=== PATIENT | female | born 1955 | race Caucasian/White ===

== ENCOUNTER 2016-11-05 07:04 | Day surgery (SDC) | payer MEDICARE, BC ==
--- NOTE | ~2016-11-05 | EGD ---
EGD REPORT [facility] [address] [place]. [address] NAME: CHIQUITA ALEGRE : 55 STATUS : REG [facility] PAT#: [id number] AGE: 61 ADM/REG DATE : 11/05/16 MR#: [id number] REPORT SERV DATE: 11/05/16 DICTATED BY: OLGA BENTLEY DATE: 11/05/16 REPORT STATUS : Draft TRANSCRIBED BY: [facility] DATE: 11/05/16 Endoscopy Center Patient Name: Chiquita Alegre Date of : 1955 Attending MD: OLGA BENTLEY MD Procedure Date No Time: 11/05/2016 Procedure: Upper GI endoscopy Indications: Dysphagia, Gastroparesis; Omeprazole prn. Patient Profile: Informed consent was obtained from the patient by me prior to the procedure. Risks, benefits, and alternatives were discussed including the risk of bleeding, perforation, infection, reaction to medicine, missed lesion, and cardiopulmonary complications. Referring MD: JENNIFER MCDONNELL Medicines: Monitored Anesthesia Care Complications: No immediate complications. Procedure: Pre-Anesthesia Assessment: - ASA Grade Assessment: III - A patient with severe systemic disease. After obtaining informed consent, the endoscope was passed under direct vision. Throughout the procedure, the patient's blood pressure, pulse, and oxygen saturations were monitored continuously. The GIF H190 [id number] was introduced through the mouth, and advanced to the third part of duodenum. The endoscope was withdrawn with careful examination all mucosal surfaces including retroflexion stomach. The upper GI endoscopy was accomplished without difficulty. The patient tolerated the procedure well. Findings: Patchy mildly erythematous mucosa was found in the third part of the duodenum. Patchy mildly erythematous mucosa was found in the second part of the duodenum. Biopsies were taken with a cold forceps for histology. A few localized erosions were found in the first part of the duodenum at c-sweep. Patchy mildly erythematous mucosa was found in the gastric body and in the gastric antrum. Biopsies were taken with a cold forceps for histology. The cardia and gastric fundus were normal. A single 5 mm sessile polyp was found in the gastric body. The polyp was removed with a cold biopsy forceps. Resection and retrieval were complete. The examined esophagus was normal except as below. 48F Savary dilation EGD REPORT [address] [address] NAME: CHIQUITA ALEGRE : 55 STATUS : REG [facility]#: [id number] AGE: 61 ADM/REG DATE : 11/05/16 MR#: [id number] REPORT SERV DATE: 11/05/16 DICTATED BY: OLGA BENTLEY DATE: 11/05/16 REPORT STATUS : Draft TRANSCRIBED BY: [employer] DATE: 11/05/16 performed over guidewire held in antrum; minimal resistance to dilation; endoscopic visualization afterwards no mucosal breaks. Multiple small plaques were found in the upper third of the esophagus, very mild. Biopsies were taken with a cold forceps for histology and sent for fungal stain. The esophagus and gastroesophageal junction were examined with white light. There was no visual evidence of Benson's esophagus. The pylorus was normal. Area was successfully injected with 100 units botulinum toxin submucosal 4 quadrants 25U each. Impression: - Erythematous duodenopathy. - Erythematous duodenopathy. Biopsied. - Duodenal erosions. - Erythematous mucosa in the gastric body and antrum. Biopsied. - Normal cardia and gastric fundus. - A single gastric polyp. Resected and retrieved. - Normal esophagus. Dilated. - Multiple plaques in the upper third of the esophagus. Biopsied. - There is no endoscopic evidence of Benson's esophagus. - Normal pylorus. Injected with botulinum toxin. Recommendation: - Patient has a contact number available for emergencies. The signs and symptoms of potential delayed complications were discussed with the patient. Return to normal activities tomorrow. Written discharge instructions were provided to the patient. - Regular diet. - Continue present medications. - Await pathology results. - Restart Dexilant. - Avoid NSAID's. Procedure Code(s): --- Professional --- 55951, Esophagogastroduodenoscopy, flexible, transoral; with insertion of guide wire followed by passage of dilator(s) through esophagus over guide wire 07801, 59, Esophagogastroduodenoscopy, flexible, transoral; with directed submucosal injection(s), any substance 48341, Esophagogastroduodenoscopy, flexible, transoral; with biopsy, single or multiple Diagnosis Code(s): --- Professional --- K31.89, Other diseases of stomach and duodenum K26.9, Duodenal ulcer, unspecified as acute or chronic, EGD REPORT [address] [address] NAME: CHIQUITA ALEGRE : 55 STATUS : REG [facility] PAT#: [id number] AGE: 61 ADM/REG DATE : 11/05/16 MR#: [id number] REPORT SERV DATE: 11/05/16 DICTATED BY: OLGA BENTLEY DATE: 11/05/16 REPORT STATUS : Draft TRANSCRIBED BY: [employer] DATE: 11/05/16 without hemorrhage or perforation K31.9, Disease of stomach and duodenum, unspecified K31.7, Polyp of stomach and duodenum K22.8, Other specified diseases of esophagus R13.10, Dysphagia, unspecified K31.84, Gastroparesis CPT copyright 2013 [employer]. All rights reserved. The codes documented in this report are preliminary and upon butcher head review may be revised to meet current compliance requirements. OLGA BENTLEY MD 11/05/2016 9:19 AM This report has been signed electronically. Number of Addenda: 0 Note Initiated On: 11/05/2016 8:20 AM Scope Withdrawal Time 0 hours 0 minutes 0 seconds [id number] [id number]
--- NOTE | ~2016-11-05 | EGD ---
EGD REPORT [facility] [address] [place]. [address] NAME: CHIQUITA ALEGRE : 55 STATUS : REG [facility] PAT#: [id number] AGE: 61 ADM/REG DATE : 11/05/16 MR#: [id number] REPORT SERV DATE: 11/05/16 DICTATED BY: OLGA BENTLEY. DATE: 11/05/16 REPORT STATUS : Draft TRANSCRIBED BY: [facility] DATE: 11/05/16 Endoscopy Center Patient Name: Chiquita Alegre Date of : 1955 Attending MD: OLGA BENTLEY MD Procedure Date No Time: 11/05/2016 Procedure: Colonoscopy Indications: High risk colon cancer surveillance: Personal history adenoma >= 10 mm in size; last exam 2012. Patient Profile: Informed consent was obtained from the patient by me prior to the procedure. Risks, benefits, and alternatives were discussed including the risk of bleeding, perforation, infection, reaction to medicine, missed lesion, and cardiopulmonary complications. Referring MD: JENNIFER MCDONNELL Medicines: Monitored Anesthesia Care Complications: No immediate complications. Procedure: Pre-Anesthesia Assessment: - ASA Grade Assessment: III - A patient with severe systemic disease. After I obtained informed consent, the scope was passed under direct vision. Throughout the procedure, the patient's blood pressure, pulse, and oxygen saturations were monitored continuously. The PCF [id number] was introduced through the anus and advanced to the cecum, identified by appendiceal orifice and ileocecal valve. The colonoscope was slowly withdrawn with careful examination all mucosal surfaces including specific attention around flexures and tip deflection behind folds; retroflexion performed in rectum. The colonoscopy was performed without difficulty. The patient tolerated the procedure well. The quality of the bowel preparation was adequate. The ileocecal valve, appendiceal orifice and rectum were photographed. Findings: Two sessile polyps were found in the transverse colon. The polyps were 7 mm in size. These polyps were removed with a cold snare. Resection and retrieval were complete. The transverse colon (evidence of a previous tattoo) and area at 55 cm proximal to the anus appeared normal. Impression: - Two 7 mm polyps in the transverse colon. Resected and retrieved. - The transverse colon and area at 55 cm proximal to the EGD REPORT [place] [id number] [facility] [place]. [address] NAME: CHIQUITA ALEGRE : 55 STATUS : REG [facility]#: [id number] AGE: 61 ADM/REG DATE : 11/05/16 MR#: [id number] REPORT SERV DATE: 11/05/16 DICTATED BY: OLGA BENTLEY DATE: 11/05/16 REPORT STATUS : Draft TRANSCRIBED BY: [facility] DATE: 11/05/16 anus are normal. Recommendation: - Patient has a contact number available for emergencies. The signs and symptoms of potential delayed complications were discussed with the patient. Return to normal activities tomorrow. Written discharge instructions were provided to the patient. - Regular diet. - Continue present medications. - Await pathology results. - Repeat colonoscopy for surveillance based on pathology results. - Restart coumadin tonight; check INR PCP 3-5 days; d/w patient, done. Procedure Code(s): --- Professional --- 87549, Colonoscopy, flexible, proximal to splenic flexure; with removal of tumor(s), polyp(s), or other lesion(s) by snare technique Diagnosis Code(s): --- Professional --- D12.3, Benign neoplasm of transverse colon Z86.010, Personal history of colonic polyps CPT copyright 2013 [employer]. All rights reserved. The codes documented in this report are preliminary and upon unit tender review may be revised to meet current compliance requirements. OLGA BENTLEY MD 11/05/2016 9:11 AM This report has been signed electronically. Number of Addenda: 0 Note Initiated On: 11/05/2016 8:24 AM Scope Withdrawal Time 0 hours 13 minutes 2 seconds [id number] [place] [id number]
[~2016-11-05 07:04] MED LIST: AMB10 PO; AMITIZA8 MCG PO; AREDIA; AREDIA IV; ARIDIA IV; ARMOUR THYRO15 MG PO; ARMOUR THYRO30 MG PO; C5 PO; COMBIGAN0.2 MG/0.5 OP; COSOPT OPH; COZAAR100 MG PO; DORZOLAMIDE2 % OP; DORZOLAMIDE2 % OPH; ESTROGEN PELLET SC; FLONASE NAS; FLOVENT DISK50 MCG INH; FOLBIC; FOLBIC PO; FOLIC PO; HORMONE PELLET; HORMONE PELLETS; HORMONE PELLETS IL; HORMONE PELLETS SC; JANTOVEN5 MG PO; KAPIDEX60 MG PO; LACRILUBE OPH; LEVOTHROID50 MCG PO; LEVOTHYROXIN50 MCG PO; LEVSINTAB PO; LIDODERM T; LINZESS 290 M290 MCG PO; LORT7 PO; LUMIGAN2.5 ML OPH; MAX D3 PO; NEXIUM40 PO; NORCO1 TA2 PO; NORCO1 TAB PO; NUVIGIL150 MG PO; NUVIGIL250 MG PO; PAMIDRONATE IV/IM/SC; PLAQ200B PO; PREV30 PO; PRIN5 PO; PROAIRRESP INH; RANITIDINE300 MG PO; RESTASIS OPH; RITALIN LA20 MG PO; RITALIN20 PO; SPIRO25 PO; SPIRO50 PO; TIMOLOL GEL0.5 % OPH; VITAMIN D1000 UNI1 PO; VITAMIN D31000 UNIT PO; VYTORIN 10/40 T1 TAB PO; XALAT OPH; XYREM500 MG/ML PO; ZANTAC300 MG PO; ZOCOR40 PO; [UNRECOGNIZED DRUG - OTHER]; [UNRECOGNIZED DRUG - OTHER]; [UNRECOGNIZED DRUG - OTHER]; [UNRECOGNIZED DRUG - OTHER] IV; [UNRECOGNIZED DRUG - OTHER] OP; [UNRECOGNIZED DRUG - OTHER] OP; [UNRECOGNIZED DRUG - OTHER] OPH; [UNRECOGNIZED DRUG - OTHER] OPH; [UNRECOGNIZED DRUG - OTHER] OPH; [UNRECOGNIZED DRUG - OTHER] PO; [UNRECOGNIZED DRUG - OTHER] PO; [UNRECOGNIZED DRUG - OTHER] PO
[2016-11-05 07:46] LABS: INTERNATIONAL NORMAL RATI 1.1 UNITS (-); PROTIME (NOT ORD) 14.2 SEC (12.0-14.5)
== END 2016-11-05 23:59 | disposition home or self-care (01) ==
LOC: DMU 07:04
PROVIDERS: Anesthesiology; Internal Medicine Gastroenterology
PROC: 0DB68ZZ Excision of Stomach, Via Natural or Artificial Opening Endoscopic (ICD-10-PCS; 2016-11-05)
PROC: 0D758ZZ Dilation of Esophagus, Via Natural or Artificial Opening Endoscopic (ICD-10-PCS; 2016-11-05)
PROC: 3E0G8GC Introduction of Other Therapeutic Substance into Upper GI, Via Natural or Artificial Opening Endoscopic (ICD-10-PCS; 2016-11-05)
PROC: 0DB68ZX Excision of Stomach, Via Natural or Artificial Opening Endoscopic, Diagnostic (ICD-10-PCS; 2016-11-05)
PROC: 0DBL8ZZ Excision of Transverse Colon, Via Natural or Artificial Opening Endoscopic (ICD-10-PCS; principal; 2016-11-05 08:00)
PROC: 0DB98ZX Excision of Duodenum, Via Natural or Artificial Opening Endoscopic, Diagnostic (ICD-10-PCS; 2016-11-05 08:00)
PROC: 0DB18ZX Excision of Upper Esophagus, Via Natural or Artificial Opening Endoscopic, Diagnostic (ICD-10-PCS; 2016-11-05 08:00)
DX: Z12.11 Encounter for screening for malignant neoplasm of colon (principal); Z86.010 Personal history of colon polyps; D12.3 Benign neoplasm of transverse colon; D68.51 Activated protein C resistance; K63.5 Polyp of colon; K29.80 Duodenitis without bleeding; K31.7 Polyp of stomach and duodenum; K21.0 Gastro-esophageal reflux disease with esophagitis; K31.84 Gastroparesis; K31.9 Disease of stomach and duodenum, unspecified; I47.1 Supraventricular tachycardia; E03.9 Hypothyroidism, unspecified; J45.909 Unspecified asthma, uncomplicated; G47.419 Narcolepsy without cataplexy; H40.9 Unspecified glaucoma; Z95.0 Presence of cardiac pacemaker; Z86.711 Personal history of pulmonary embolism; Z98.1 Arthrodesis status; Z98.890 Other specified postprocedural states; Z88.1 Allergy status to other antibiotic agents; Z88.6 Allergy status to analgesic agent; Z91.048 Other nonmedicinal substance allergy status; Z79.2 Long term (current) use of antibiotics; Z79.01 Long term (current) use of anticoagulants; Z79.899 Other long term (current) drug therapy
CPT/HCPCS: 85610; 88305; J0585